=== PATIENT | female | born 1960 | race Caucasian/White ===

== ENCOUNTER 2019-04-19 17:42 | Inpatient (IN) | payer MEDICAID ==
[~2019-04-19] VITALS: Ht 175.3 cm; Wt 78.4 kg
[2019-04-19] MEDS ORDERED: ANTIVERT12.5 MG PO (18:42)
[2019-04-19] MEDS ORDERED: GABAPENTIN100 MG PO (18:43)
[2019-04-19] MEDS ORDERED: ASPIRIN81 MG PO (18:43)
--- NOTE | 2019-04-19 19:30 | NUR ---
PT ALERT AND ORIENTED X4. PT RR EVEN AND UNLABORED. NEW ADMIT FROM DR. ZAVALA WITH AN EXTENSIVE LIST OF ALLERGIES THAT ARE ON CHART AND IN COMPUTER. PT HAS A DEEP FORCEFUL BARKING CROUP SOUNDING COUGH. SISTER At BEDSIDE. BED LOW CALL LIGHT WITHIN REACH. WILL CONTINUE TO MONITOR.
[2019-04-19 19:32] LABS: BASOPHILS 0.7 % (0-2); EOSINOPHILS 3.4 % (0-7); HEMATOCRIT 35.9 % (36.0-48.0); HEMOGLOBIN 12.2 g/dL (12-16); IMMATURE GRANULOCYTES 0.2 % (0-5); LYMPHOCYTES 33.3 % (15-50); MCH 29.3 pg (26.0-34.0); MCV 86.3 fL (80.0-100.0); MEAN PLATELET VOLUME 9.6 fL (7.4-10.4); MONOCYTES 9.7 % (2-11); NEUTROPHILS 52.7 % (40-80); PLATELET COUNT 184 10x3/uL (130-400); RBC 4.16 10x6/uL (4.00-5.40); RDW 13.7 % (11.5-14.5); WBC 4.5 10x3/uL (4.8-10.8)
[2019-04-19 20:00] VITALS: BP 120/65
[2019-04-19 20:35] LABS: ALBUMIN 3.7 g/dL (3.4-5.0); ALKALINE PHOSPHATASE 66 U/L (46-116); ALT (SGPT) 37 U/L (10-68); BILIRUBIN - TOTAL 0.35 mg/dL (0.2-1.3); CALC OSMOLALITY 283 mosm/kg (275-300); CALCIUM 8.9 mg/dL (8.5-10.1); CARBON DIOXIDE 28.7 mmol/L (21.0-32.0); CHLORIDE - SERUM 104 mmol/L (98-107); CREATININE - SERUM 0.6 mg/dL (0.6-1.3); GLUCOSE 128 mg/dL (74-106); POTASSIUM - SERUM 3.4 mmol/L (3.5-5.1); PROTEIN - SERUM 7.3 g/dL (6.4-8.2); SODIUM 142 mmol/L (136-145); UREA NITROGEN 11 mg/dL (7-18); eGFR NON AFRICAN AMERICAN > 90 mL/min (90-120)
--- NOTE | 2019-04-19 21:45 | NUR ---
PATENT 20G IV PLACED IN PT RIGHT FOREARM. NS STARED AT 50ML/HR WITH MERREM. STAYED IN ROOM WITH PT TO MONITOR FOR REACTION. PT ALERT AND ORIENTED X4 AND VITALS REMAIN STABLE. NO TELEMETRY AVAILABLE AT THIS TIME. BED LOW CALL LIGHT WITHIN REACH. SISTER AT BEDSIDE. WILL CONTINUE TO MONITOR.
[2019-04-20] VITALS (7 sets, daily range): BP systolic 99–138; BP diastolic 54–85; Ht 175.3 cm; Wt 78.4 kg
--- NOTE | 2019-04-20 03:01 | NUR ---
PT COMPLAING OF PAIN WHEN COUGHING. PT GIVEN A POPCICLE TO HELP SOOTHE THROAT. WILL CONTINUE TO MONITOR.
--- NOTE | 2019-04-20 03:19 | NUR ---
i have reviewed this pt and i concur with the shift assessment conducted by Licensed Practical Nurse during this shift.
--- NOTE | 2019-04-20 03:38 | NUR ---
PT BEEN AWAKE ALL NIGHT DUE TO COUGHING. PT STATES SHE HASN'T SLEPT IN FOUR NIGHTS. ANTIBIOTICS RUNNING. SISTER AT BEDSIDE WILL CONTINUE TO MONITOR.
[2019-04-20 04:20] LABS: BASOPHILS 0.4 % (0-2); EOSINOPHILS 3.8 % (0-7); HEMATOCRIT 32.6 % (36.0-48.0); HEMOGLOBIN 11.2 g/dL (12-16); LYMPHOCYTES 33.7 % (15-50); MCH 29.6 pg (26.0-34.0); MCHC 34.4 g/dL (31.0-37.0); MEAN PLATELET VOLUME 9.5 fL (7.4-10.4); MONOCYTES 11.4 % (2-11); NEUTROPHILS 50.7 % (40-80); PLATELET COUNT 171 10x3/uL (130-400); RBC 3.79 10x6/uL (4.00-5.40); RDW 13.6 % (11.5-14.5)
[2019-04-20 04:39] LABS: ANION GAP 11.7 mmol/L (8-16); CALCIUM 8.3 mg/dL (8.5-10.1); CARBON DIOXIDE 27.4 mmol/L (21.0-32.0); MAGNESIUM - SERUM 1.6 mg/dL (1.8-2.4); PHOSPHOROUS 4.2 mg/dL (2.5-4.9); POTASSIUM - SERUM 3.1 mmol/L (3.5-5.1)
[2019-04-20 04:56] LABS: CREATININE - SERUM 0.9 mg/dL (0.6-1.3)
--- NOTE | 2019-04-20 05:45 | NUR ---
40 MEQ OF POTASSIUM GIVEN. FIRST BAG OF MAGNESIUM STARTED FOR ELECTROLYTE PROTOCOL. WILL CONTINUE TO MONITOR.
--- NOTE | 2019-04-20 07:00 | NUR ---
RECEIVED REPORT. ASSUMED CARE OF PATIENT. RESTING IN BED WITH HOB ELEVATED. PATIENT WITH DRY, BARKY, NON-PRODUCTIVE COUGH. RESP EVEN AND UNLABORED. NO DISTRESS. IV FLUIDS INFUSING ORDERED. CALL LIGGHT WITHIN REACH. PATIENTS SISTER AT BEDSIDE. DENIES NEEDS.
--- NOTE | 2019-04-20 11:33 | NUR ---
SUSAN AND HOWARD GUADARRAMA PROVIDED UPON REQUEST TO PATIENT. NO DISTRESS.
[2019-04-20 13:59] LABS: % SATURATION 26 % (15-55); IRON 59 ug/dl (35-150); TOTAL IRON BIND CAPACITY 223 ug/dl (260-445); UNSAT IRON BIND CAPACITY 164 ug/dl (150-375)
--- NOTE | 2019-04-20 14:19 | NUR ---
PATIENT HAVING INCONTINENT EPISODES FROM COUGHING, HAVE BEEN UNABLE TO GIVE URINE SPECIMEN. PATIENT REFUSED IN AND OUT CATH. HAT PLACED ON TOILET. PATIENT ASKED IF A CHEMICAL ENGRAVER COULD SEE HER AND GIVE THEIR OPINION, INFORMED PATIENT THAT PULMONARY HAS ALREADY BEEN CONSULTED. PATIENT THANKED THIS PEDIATRIC OCCUPATIONAL THERAPIST.
--- NOTE | 2019-04-20 14:53 | NUR ---
K+ SUPPLEMENT INITIATED AT THIS TIME AFTER REDRAW OF K+ RESULTED AT 3.2. PATIENT IS CONSTANTLY URINATING DUE TO HER COUGH. TOOK K+ SUPPLEMENTS WITHOUT DIFFICULTY AFTER DISSOLVED WITH FEW DROPS OF H2O. NO DISTRESS.
--- NOTE | 2019-04-20 17:43 | NUR ---
RESTING IN BED. NO VISITORS AT BEDSIDE AT THE MOMENT. PATIENT SITTING UP IN BED AND HAS CONSUMED PM MEAL. NO DISTRESS.
--- NOTE | 2019-04-20 19:45 | NUR ---
ASSESSMENT COMPLETE. PT A&O. RESPERATIONS EVEN ON RA. PT ALSO HAS NON-PRODUCTIVE COUGH. IV TO RIGHT ARM WITH NS INFUSING AT 50 CC/HR, IV SITE CLEAN AND DRY. PTS DAUGHTER AT BED SIDE, BED LOW, CL IN REACH.
--- NOTE | 2019-04-20 21:24 | NUR ---
HS MEDS GIVEN WITH FRESH ICE WATER. PT DENIES PAIN OR NEEDS. DAUGHTER AT BED SIDE.
[2019-04-21 00:47] VITALS: BP 138/65
--- NOTE | 2019-04-21 03:37 | NUR ---
RESTING WITH EYES CLOSED, RESPERATIONS EVEN, NO S/S DSITRESS NOTED.
[2019-04-21 05:13] VITALS: BP 138/70
[2019-04-21 06:10] LABS: BASOPHILS 0.4 % (0-2); EOSINOPHILS 3.7 % (0-7); HEMATOCRIT 32.9 % (36.0-48.0); HEMOGLOBIN 11.4 g/dL (12-16); LYMPHOCYTES 30.8 % (15-50); MCH 29.8 pg (26.0-34.0); MCHC 34.7 g/dL (31.0-37.0); MCV 86.1 fL (80.0-100.0); MEAN PLATELET VOLUME 10.1 fL (7.4-10.4); MONOCYTES 9.8 % (2-11); NEUTROPHILS 55.3 % (40-80); PLATELET COUNT 183 10x3/uL (130-400); RBC 3.82 10x6/uL (4.00-5.40); WBC 4.6 10x3/uL (4.8-10.8)
[2019-04-21 06:23] LABS: CALCIUM 8.2 mg/dL (8.5-10.1); CARBON DIOXIDE 26.6 mmol/L (21.0-32.0); CHLORIDE - SERUM 108 mmol/L (98-107); GLUCOSE 89 mg/dL (74-106); POTASSIUM - SERUM 3.9 mmol/L (3.5-5.1); SODIUM 142 mmol/L (136-145)
[2019-04-21 06:25] LABS: CALC OSMOLALITY 279 mosm/kg (275-300); CREATININE - SERUM 0.6 mg/dL (0.6-1.3); PHOSPHOROUS 2.8 mg/dL (2.5-4.9); UREA NITROGEN 8 mg/dL (7-18); eGFR NON AFRICAN AMERICAN > 90 mL/min (90-120)
--- NOTE | 2019-04-21 07:45 | NUR ---
PT SITTING IN SEMI FOWLERS POSITION. NO COMPLAINTS OF PAIN OR CONCERNS AT THIS TIME. NO SIGNS OF DISTRESS NOTED. WILL CTM.
[2019-04-21 09:20] VITALS: BP 132/66
--- NOTE | 2019-04-21 10:57 | NUR ---
I have reviewed this patient and I concur with the Shift Assessment completed by the Licensed Practical Nurse today this shift.
[2019-04-21 13:07] VITALS: BP 126/63
--- NOTE | 2019-04-21 18:11 | NUR ---
WITHOUT CHANGES OR DISTRESS NOTED AT THIS TIME. SISTER AT SIDE. DENIES NEEDS
--- NOTE | 2019-04-21 18:19 | NUR ---
URINE CUP REMAINS IN ROOM. EXPLAINED TO PT AGAIN WHAT WAS NEEDED
--- NOTE | 2019-04-21 19:25 | NUR ---
ASSESSMENT COMPLETE, PT A&O. RESPERATIONS NON LABORED ON RA. IV TO RIGHT FOREARM WITH NS INFUSING AT 50 CC/HR. IV SITE CLEAN AND DRY. PT DENIES PAIN OR NEEDS AT THIS TIME, BED LOW, CL IN REACH.
[2019-04-21 20:00] VITALS: BP 132/60
--- NOTE | 2019-04-21 20:51 | NUR ---
HS MEDS GIVEN WITH FRESH ICE WATER. PT DENIES PAIN. IV COVERED SO PT CAN TAKE A SHOWER.
[2019-04-22] VITALS: BP 121/62
[2019-04-22 04:00] VITALS: BP 130/68
[2019-04-22 05:02] LABS: BASOPHILS 0.8 % (0-2); EOSINOPHILS 4.3 % (0-7); HEMATOCRIT 33.7 % (36.0-48.0); HEMOGLOBIN 11.4 g/dL (12-16); IMMATURE GRANULOCYTES 0.3 % (0-5); LYMPHOCYTES 40.7 % (15-50); MCH 29.1 pg (26.0-34.0); MCHC 33.8 g/dL (31.0-37.0); MEAN PLATELET VOLUME 9.8 fL (7.4-10.4); MONOCYTES 8.9 % (2-11); PLATELET COUNT 176 10x3/uL (130-400); RBC 3.92 10x6/uL (4.00-5.40); WBC 3.7 10x3/uL (4.8-10.8)
[2019-04-22 05:14] LABS: CALC OSMOLALITY 280 mosm/kg (275-300); CALCIUM 8.2 mg/dL (8.5-10.1); CARBON DIOXIDE 27.2 mmol/L (21.0-32.0); CHLORIDE - SERUM 105 mmol/L (98-107); CREATININE - SERUM 0.6 mg/dL (0.6-1.3); GLUCOSE 95 mg/dL (74-106); MAGNESIUM - SERUM 1.8 mg/dL (1.8-2.4); PHOSPHOROUS 3.4 mg/dL (2.5-4.9); POTASSIUM - SERUM 3.9 mmol/L (3.5-5.1); SODIUM 141 mmol/L (136-145); eGFR NON AFRICAN AMERICAN > 90 mL/min (90-120)
[2019-04-22 05:20] LABS: UREA NITROGEN 12 mg/dL (7-18)
--- NOTE | 2019-04-22 07:07 | NUR ---
ASSESSMNET DONE. DENIES NEEDS
--- NOTE | 2019-04-22 07:35 | NUR ---
ASSESSMENT DONE. DENIES NEEDS
[2019-04-22 09:39] VITALS: BP 127/55
[2019-04-22] MEDS ORDERED: TESSALON PERLE100 MG PO (11:29)
[2019-04-22] MEDS ORDERED: PULMICORT0.5 MG/21 UPD (11:29)
[2019-04-22 13:14] VITALS: BP 113/59
--- NOTE | 2019-04-22 13:14 | NUR ---
I have reviewed this patient and I concur with the Shift Assessment completed by the Licensed Practical Nurse today this shift.
[2019-04-22] MEDS ORDERED: SYMBICORT 16010.2 GM INH (13:17)
--- NOTE | 2019-04-22 14:56 | NUR ---
PT GIVEN DC
--- NOTE | 2019-04-22 15:11 | NUR ---
DC HOME PER PERSONAL CAR
--- NOTE | 2019-04-22 17:32 | MORECARE ---
CASE MANAGEMENT DISCHARGE SUMMARY PATIENT: LEXI FONTANEZ UNIT: [id number] ADM DATE: 04/19/19 AGE: 58 : 64 SEX: F ROOM/BED: D.2 AUTHOR: MARJ,DOC PHYSICIAN: REFERRING PHYSICIAN: DIOGENES ZAVALA MD DATE OF SERVICE: 04/22/19 Discharge Plan Patient Name: LEXI FONTANEZ Facility: [facility]:Roy : 1960 Planned Disposition: Home Anticipated Discharge Date: 04/22/19 Discharge Date: 04/22/2019 Expected LOS: 3 Initial Reviewer: [email or web address] Initial Review Date: 04/22/2019 Generated: 04/22/19 6:32 pm Comments DCP- Discharge Planning Updated by [email or web address]: Wes Muñiz on 04/22/19 4:[address] Patient Name: LEXI FONTANEZ Admission Status: Elective Accout number: [id number] Admission Date: 04-19-2019 : 1960 Admission Diagnosis:PNEUMONIA, UNSPECIFIED ORGANISM Attending: VIRGIE Current LOS: 3 Anticipated DC Date: 04-22-2019 Planned Disposition: Home Primary Insurance: MEDICAID [place] Discharge Planning Comments: LEXI FONTANEZ provided verbal consent to discuss current and ongoing needs with/in the presence of: HER SISTER, RUSSELL. [facility] TO [facility]CUSS DISCHARGE PLANNING AND NEEDS. PT REPORTS LIVING AT HOME INDEPENDENTLY WITH HER ADULT DAUGHTER. PT HAS NO MEDICAL EQUIPMENT AND NO OUTSIDE SERVICES ASSISTING IN THE HOME. CM DISCUSSED AVAILABILITY OF HOME HEALTH, REHAB SERVICES AND MEDICAL EQUIPMENT. PT DENIES DISCHARGE NEEDS, REPORTS HER SISTER WILL PICK HER UP FOR DISCHARGE HOME. WES MUÑIZ, CASE MANAGEMENT DCPIA - Discharge Planning Initial Assessment Updated by [email or web address]: Wes Muñiz on 04/22/19 5:28 pm * Is the patient Alert and Oriented? Yes * How many steps to enter\exit or inside your home? * PCP DR. STARK * Pharmacy [facility] * Preadmission Environment Home with Family * ADLs Independent * Equipment None * Other Equipment [facility] [place] - PREFERRED PROVIDER * List name and contact numbers for known caregivers / representatives who currently or will assist patient after discharge: JOE GRANGER, LAW[place], * Verbal permission to speak to the caregivers and representatives has been obtained from the patient. Yes * Community resources currently utilized None * Please name any agencies selected above. NONE * Additional services required to return to the preadmission environment? No * Can the patient safely return to the preadmission environment? Yes * Has this patient been hospitalized within the prior 30 days at any hospital? No Patient Name: LEXI FONTANEZ Page [id number] at [id number] All edits/amendments must be made on the electronic document DICTATION DATE: 04/22/191730 ANIMAL RIDE ATTENDANT: AURELIA 04/22/191730 RPT#: [id number] [place] DATE:04/22/19 STATUS: DIS IN [facility] [address] [place] [address] END OF REPORT
[2019-04-23 13:10] LABS: B PARAPERTUSSIS DNA Negative (Negative); B PERTUSSIS DNA Negative (Negative)
== END 2019-04-22 15:11 | disposition home or self-care (01) | DRG 195 ==
LOC: D.M2 17:42
PROVIDERS: Internal Medicine Nephrology; Internal Medicine Pulmonary Disease; ADMIT Family Medicine; ATTEND Family Medicine
DX: J18.9 Pneumonia, unspecified organism (principal); J45.909 Unspecified asthma, uncomplicated; D64.9 Anemia, unspecified; E87.6 Hypokalemia; E83.42 Hypomagnesemia; M81.0 Age-related osteoporosis without current pathological fracture; G62.9 Polyneuropathy, unspecified; E03.9 Hypothyroidism, unspecified; Z86.73 Personal history of transient ischemic attack (TIA), and cerebral infarction without residual deficits